=== PATIENT | male | born 1980 | race American Indian/Alaskan Native ===

== ENCOUNTER 2018-06-30 17:52 | Emergency (ER) | payer SELFPAY ==
[2018-06-30 18:59] VITALS: BP 176/106
--- NOTE | 2018-06-30 19:35 | Emergency Department Report ---
Blank Doc - Documentation Documentation: 89 y/o male present to ED c/o asymptomatic HTN found while having dental proc edure. Denies previous history Recheck BP and start medications
== END 2018-06-30 21:54 | disposition left against medical advice (07) ==
LOC: ED 17:52
DX: I10 Essential (primary) hypertension (principal); Z53.21 Procedure and treatment not carried out due to patient leaving prior to being seen by health care provider

== ENCOUNTER 2020-01-11 09:05 | Emergency (ER) | payer BC ==
--- NOTE | 2020-01-11 11:52 | Emergency Department Report ---
ED General Adult HPI - General Chief complaint: Extremity Injury, Upper Stated complaint: LT ARM PAIN Time Seen by Provider: 01/11/20 11:35 Source: patient Mode of arrival: Ambulatory Limitations: No Limitations - History of Present Illness Initial comments: 39-year-old -[place] male patient presents with complaints of intermittent left elbow pain x1 month and elevated blood pressure x3 days. Patient reports that he does repetitive motions at work and first felt the pain after doing a quick sling back motion 1 month ago. He denies any current pain, history of cancer, fever/chills/sweats, swelling of the elbow, decreased range of motion of the elbow/hand, or numbness/tingling/weakness in his arm or hand. 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 Patient denies any previous history of hypertension, headaches, vision changes, dizziness, chest pain, s hortness of breath, urinary changes, or any past medical history. He reports the last time he has been to a PCP was 2 years ago and his blood pressure was fine at that time. - Related Data Previous Rx's Medication Instructions Recorded Last Taken Type Meloxicam [Mobic] 15 mg PO QDAY #15 tablet 01/11/20 Unknown Rx Allergies Allergy/AdvReac Type Severity Reaction Status Date / Time No Known Allergies Allergy Verified 01/11/20 09:11 ED Review of Systems ROS: Stated complaint: LT ARM PAIN Other details as noted in HPI Constitutional: denies: chills, diaphoresis, fever, malaise, weakness ENT: denies: ear pain, throat pain Respiratory: denies: cough, shortness of breath Cardiovascular: denies: chest pain Gastrointestinal: denies: abdominal pain, nausea, vomiting Genitourinary: denies: hematuria Musculoskeletal: arthralgia. denies: back pain, joint swelling Skin: denies: rash, lesions Neurological: denies: headache, weakness, numbness, paresthesias, confusion, abnormal gait, vertigo Hematological/Lymphatic: denies: swollen glands ED Past Medical Hx - Past Medical History Previous Medical History?: No - Surgical History Past Surgical History?: No - Social History Smoking Status: Never Smoker Substance Use Type: Alcohol - Medications Home Medications: Home Medications Medication Instructions Recorded Confirmed Last Taken Type Meloxicam [Mobic] 15 mg PO QDAY #15 tablet 01/11/20 Unknown Rx ED Physical Exam - General Limitations: No Limitations General appearance: alert, in no apparent distress - Head Head exam: Present: atraumatic, normocephalic - Eye Eye exam: Present: normal appearance. Absent: scleral icterus - ENT ENT exam: Present: mucous membranes moist - Respiratory Respiratory exam: Present: normal lung sounds bilaterally. Absent: respiratory distress - Cardiovascular Cardiovascular Exam: Present: regular rate, normal rhythm. Absent: systolic murmur, diastolic murmur, rubs, gallop - GI/Abdominal GI/Abdominal exam: Present: soft. Absent: distended - Extremities Exam Extremities exam: Absent: other (Mild tenderness to palpation noted over left lateral epicondyle without erythema or swelling noted ; patient has full range of motion of the elbow and left hand and wrist with normal sensation and strength ;no edema noted bilaterally to lower extremities) - Back Exam Back exam: Present: full ROM - Neurological Exam Neurological exam: Present: alert, oriented X3, normal gait - Psychiatric Psychiatric exam: Present: normal affect, normal mood - Skin Skin exam: Present: warm, dry, intact, normal color. Absent: rash, cyanosis ED Course Vital Signs 01/11/20 01/11/20 09:13 12:54 Temperature 98.1 F Pulse Rate 75 68 Respiratory 18 16 Rate Blood Pressure 182/119 Blood Pressure 156/94 [Left] O2 Sat by Pulse 79 L 99 Oximetry ED Medical Decision Making - Lab Data Result diagrams: 01/11/20 11:48 01/11/20 11:48 Lab Results 01/11/20 01/11/20 Range/Units 11:48 11:48 WBC 5.8 (4.5-11.0) K/mm3 RBC 4.86 (3.65-5.03) M/mm3 Hgb 15.9 H (11.8-15.2) gm/dl Hct 45.7 H (35.5-45.6) % MCV 94 (84-94) fl MCH 33 H (28-32) pg MCHC 35 H (32-34) % RDW 13.1 L (13.2-15.2) % Plt Count 248 (140-440) K/mm3 Lymph % (Auto) 31.3 (13.4-35.0) % [place] % (Auto) 12.7 H (0.0-7.3) % Eos % (Auto) 2.1 (0.0-4.3) % Baso % (Auto) 0.9 (0.0-1.8) % Lymph # (Auto) 1.8 (1.2-5.4) K/mm3 [place] # (Auto) 0.7 (0.0-0.8) K/mm3 Eos # (Auto) 0.1 (0.0-0.4) K/mm3 Baso # (Auto) 0.0 (0.0-0.1) K/mm3 Seg Neutrophils % 53.0 (40.0-70.0) % Seg Neutrophils # 3.1 (1.8-7.7) K/mm3 Sodium 137 (137-145) mmol/L Potassium 3.9 (3.6-5.0) mmol/L Chloride 101.2 (98-107) mmol/L Carbon Dioxide 24 (22-30) mmol/L Anion Gap 16 mmol/L BUN 10 (9-20) mg/dL Creatinine 0.9 (0.8-1.3) mg/dL Estimated GFR > 60 ml/min BUN/Creatinine Ratio 11 % Glucose 116 H (75-100) mg/dL Calcium 9.3 (8.4-10.2) mg/dL Total Bilirubin 0.40 (0.1-1.2) mg/dL AST 27 (5-40) units/L ALT 38 (7-56) units/L Alkaline Phosphatase 75 (35-129) units/L Total Protein 8.1 (6.3-8.2) g/dL Albumin 4.4 (3.9-5) g/dL Albumin/Globulin Ratio 1.2 % - Medical Decision Making 39-year-old -[place] male patient presents with complaints of intermittent left elbow pain x1 month and elevated blood pressure x3 days. Pat marco reports that he does repetitive motions at work and first felt the pain after doing a quick sling back motion 1 month ago. He denies any current pain, history of cancer, fever/chills/sweats, swelling of the elbow, decreased range of motion of the elbow/hand, or numbness/tingling/weakness in his arm or hand. 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 Patient denies any previous history of hypertension, headaches, vision changes, dizziness, chest pain, shortness of breath, urinary changes, or any past medical history. He reports the last time he has been to a PCP was 2 years ago and his blood pressure was fine at that time. Tenderness at the lateral epicondyles noted on exam without other acute findin gs. Blood pressure initially 182/119 upon arrival, now 156/94 without medication intervention. Recommend patient follows up with primary care for further evaluation and official diagnosis of hypertension. Discussed importance of diet and exercise and treatment of hypertension and strict return pr ecautions in detail with patient who verbalized understanding. Critical care attestation.: If time is entered above; I have spent that time in minutes in the direct care of this critically ill patient, excluding procedure time. ED Disposition Clinical Impression: Elevated blood pressure reading Lateral epicondylitis of elbow Qualifiers: Laterality: left Qualified Code(s): M77.12 - Lateral epicondylitis, left elbow Disposition: TO HOME OR SELFCARE Is pt being admited?: No Condition: Stable Instructions: Tennis Elbow (ED), Hypertension (ED) Prescriptions: Meloxicam [Mobic] 15 mg PO QDAY #15 tablet Referrals: YULIET MULLIGAN MD [Staff Physician] - 2-3 Days (Possible Hypertension )
[2020-01-11 12:20] LABS: Basophils % (Auto) 0.9 % (0.0-1.8); Eosinophils # (Auto) 0.1 K/mm3 (0.0-0.4); Eosinophils % (Auto) 2.1 % (0.0-4.3); Hematocrit 45.7 % (35.5-45.6); Hemoglobin 15.9 gm/dl (11.8-15.2); Lymphocytes # (Auto) 1.8 K/mm3 (1.2-5.4); Lymphocytes % (Auto) 31.3 % (13.4-35.0); Mean Corpuscular HGB Conc 35 % (32-34); Mean Corpuscular Volume 94 fl (84-94); Monocytes # (Auto) 0.7 K/mm3 (0.0-0.8); Monocytes % (Auto) 12.7 % (0.0-7.3); Platelet Count 248 K/mm3 (140-440); Red Blood Count 4.86 M/mm3 (3.65-5.03); Red Cell Distribution Width 13.1 % (13.2-15.2)
[2020-01-11 12:30] LABS: Alanine Aminotransferase 38 units/L (7-56); Albumin 4.4 g/dL (3.9-5); BUN/Creatinine Ratio 11; Blood Urea Nitrogen 10 mg/dL (9-20); Calcium 9.3 mg/dL (8.4-10.2); Hemolysis Index 59
[2020-01-11 12:55] VITALS: BP 156/94
== END 2020-01-11 13:18 | disposition home or self-care (01) ==
LOC: ED 09:05
DX: M77.12 Lateral epicondylitis, left elbow (principal); R03.0 Elevated blood-pressure reading, without diagnosis of hypertension; Z79.899 Other long term (current) drug therapy
CPT/HCPCS: 36415; 80053; 85025